=== PATIENT | female | born 1945 | race Caucasian/White ===

== ENCOUNTER → 2016-06-02 | Outpatient (CLI) | payer MEDICARE, OTHER ==
--- NOTE | 2016-06-03 07:37 | MM ---
Reason for exam: history of breast cancer, conservation therapy. Last mammogram was performed 1 year ago. History: Patient is postmenopausal, has history of breast cancer at age 43, and history of high-risk lesion on a previous biopsy. Family history of breast cancer in daughter at age 42, breast cancer in maternal aunt at age 60, breast cancer in maternal grandmother at age 60, and breast cancer in sister at age 64. Lumpectomy of the right breast, 1989. Radiation therapy of the right breast, 1989. Physical Findings: Nurse did not find any significant physical abnormalities on exam. MG 3D Diag Mammo W/Cad MALLORY Bilateral CC and MLO view(s) were taken. Prior study comparison: May 28, 2015, bilateral MG 3d diag mammo w/cad MALLORY. May 25, 2014, bilateral MG diagnostic mammo w CAD MALLORY. The breast tissue is extremely dense which could obscure a lesion on mammography. There is chronic nodularity in the left breast. These results were verbally communicated with the patient and result sheet given to the patient on 06/02/16. ASSESSMENT: Benign, BI-RAD 2 RECOMMENDATION: Routine screening mammogram of both breasts in 1 year.
== END | disposition home or self-care (01) ==
LOC: RADMAMWWP 15:27
PROVIDERS: ATTEND Family Medicine
DX: Z85.3 Personal history of malignant neoplasm of breast (principal); Z80.3 Family history of malignant neoplasm of breast
CPT/HCPCS: G0204; G0279

== ENCOUNTER 2016-06-03 14:35 | Emergency (ER) | payer MEDICARE, OTHER ==
--- NOTE | 2016-06-03 15:50 | XR ---
EXAMINATION TYPE: XR chest 2V DATE OF EXAM: 06/03/2016 3:41 PM COMPARISON: NONE HISTORY: Hemoptysis TECHNIQUE: Frontal and lateral views of the chest are obtained. FINDINGS: There is a spinal curvature. Prominent lung volumes are compatible with underlying COPD. N o pneumothorax or pleural effusion. There is a wedge-shaped area of increased attenuation present sup erimposing the heart and lateral exam possibly within the right middle lobe. Pulmonary vascularity an d stephen within normal limits. Heart size is not enlarged. IMPRESSION: There may be some underlying scarring or atelectasis, correlate to exclude pneumonia. Co nsider chest CT for better evaluation. COPD.
--- NOTE | 2016-06-03 15:51 | ED ---
General Adult HPI - General Chief complaint: Upper Respiratory Infection Stated complaint: coughing up blood Time Seen by Provider: 06/03/16 15:13 Source: patient, RN notes reviewed Mode of arrival: ambulatory Limitations: no limitations - History of Present Illness Initial comments: Patient 70-year-old female sick. Past medical history for asthma, who presents emergency room today with chief complaint of hemoptysis. She does admit that she had episode 2 days ago where she was coughing up blood at night for approximately an hour and half. Patient states it's a bright red color. States did not have any problems for the past 2 days. Today after lunch had another episode of coughing where she had bright red blood for approximately half hour. States her weight. She also had coughing episode where she continued to cough and again noticed blood in her sputum. States it was a bright red color. Patient states she does see a medical coding instructor . She states she called the office and was advised coming here to the emergency room. Patient denies any other complaints or symptoms at this time. Patient denies any recent fever, chills, shortness of breath, chest pain, back pain, abdominal pain, nausea or vomiting, numbness or tingling, dysuria or hematuria, constipation or diarrhea, headaches or visual changes, or any other complaints. - Related Data Home Medications Medication Instructions Recorded Confirmed Budesonide-Formot 160-4.5 Mcg 2 puff INHALATION BID 12/21/14 06/03/16 [Symbicort 160-4.5 Mcg Inhaler] [place] Cit/Mag/D3/Zn/Cash Management Coordinator/Timoteo/Bor 1 each PO DAILY 12/21/14 06/03/16 [Citracal-Vit D + Magnesium Tab] Cyanocobalamin (Vitamin B-12) 1 each NS DAILY 12/21/14 06/03/16 [Nascobal] Ketotifen 0.025% Ophth Soln 1 drop BOTH EYES BID 12/21/14 06/03/16 [Zaditor] Liothyronine Sodium [Cytomel] 5 mcg PO Q2D 12/21/14 06/03/16 Montelukast [Singulair] 10 mg PO HS 12/21/14 06/03/16 Multivit with Calcium,Iron,Min 1 each PO DAILY 12/21/14 06/03/16 [Women's Daily Multivitamin] Rizatriptan Benzoate [Maxalt] 10 mg PO DIRECTED PRN 12/21/14 06/03/16 Diclofenac Sodium Gel [Voltaren 2 - 4 gm TOPICAL QID PRN 06/03/16 06/03/16 Gel] Fluorometholone [Fml S.o.p] 1 applic BOTH EYES TID 06/03/16 06/03/16 Levothyroxine Sodium [Synthroid] 112 mcg PO DAILY 06/03/16 06/03/16 Topiramate [Topamax] 50 mg PO BID 06/03/16 06/03/16 tiZANidine [Zanaflex] 2 mg PO BID PRN 06/03/16 06/03/16 Previous Rx's Medication Instructions Recorded Levofloxacin [Levaquin] 500 mg PO DAILY 7 Days 06/03/16 predniSONE 20 mg PO DIRECTED #12 tab 06/03/16 Allergies Allergy/AdvReac Type Severity Reaction Status Date / Time codeine AdvReac Nausea & Verified 06/03/16 15:01 Vomiting antibiotics AdvReac severe Uncoded 06/03/16 15:01 diarrhea fragrances AdvReac triggers Uncoded 06/03/16 15:01 asthma Review of Systems ROS Statement: Those systems with pertinent positive or pertinent negative responses have been documented in the HPI. ROS Other: All systems not noted in ROS Statement are negative. Past Medical History Past Medical History: Asthma, Cancer, GERD/Reflux, Thyroid Disorder Additional Past Medical History / Comment(s): hx. migraines, hx. colon polyps, runs low BP, problems w/bowel leakage, & discomfort before & after BM, hx. 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 Eye: Pupils are equal, round and reactive to light, extra-ocular movements are intact. No nystagmus. There is normal conjunctiva bilaterally. No signs of icterus. Ears, nose, mouth and throat: There are moist mucous membranes and no oral lesions. Neck: The neck is supple, there is no tenderness or JVD. Cardiovascular: There is a regular rate and rhythm. No murmur, rub or gallop is appreciated. Respiratory: Mild expiratory wheeze. respirations are non-labored, breath sounds are equal. No stridor, rales, or rhonchi. Gastrointestinal: Soft, non-distended, non-tender abdomen without masses or organomegaly noted. There is no rebound or guarding present. No CVA tenderness. Bowel sounds are unremarkable. Musculoskeletal: Normal ROM, no tenderness. Strength 5/5. Sensation intact. Pulses equal bilaterally 2+. Neurological: A&O x 3. CN II-XII intact, There are no obvious motor or sensory deficits. Coordination appears grossly intact. Speech is normal. Skin: Skin is warm and dry and no rashes or lesions are noted. Psychiatric: Cooperative, appropriate mood & affect, normal judgment. Limitations: no limitations Course Vital Signs 06/03/16 14:57 Temperature 98.4 F Pulse Rate 97 Respiratory 20 Rate Blood Pressure 146/84 O2 Sat by Pulse 93 L Oximetry Medical Decision Making - Medical Decision Making Case discussed in detail with attending physician Dr. Alcala. Chest x-ray revealed and showed atelectasis with scarring with possible pneumonia on the right. Results were discussed with the patient. Case discussed with patient about options of admission versus being discharged. States she would feel more comfortable being discharged home. States she will follow-up with medical coding instructor. Patient will be started on Levaquin and steroids here in the emergency room. Advised follow-up medical coding instructor over the next 2 days. Advised return to emergency room if any symptoms increase or worsen or for any other concerns. Disposition Clinical Impression: Community acquired pneumonia Disposition: HOME SELF-CARE Condition: Good Instructions: Community Acquired Pneumonia (ED) Additional Instructions: Please use medication as discussed. Please follow-up with family doctor/ medical coding instructor in the next 2 days of symptoms have not improved. Please return to emergency room if the symptoms increase or worsen or for any other concerns. Prescriptions: Levofloxacin [Levaquin] 500 mg PO DAILY 7 Days predniSONE 20 mg PO DIRECTED #12 tab Referrals: Johanne Leger DO [Primary Care Provider] - 1-2 days Venu Chaparro DO [Doctor of Osteopathic Medicine] - 1-2 days Time of Disposition: 16:06
[2016-06-03 15:57] VITALS: BP 133/72; PULSE 74; RESP 16
[2016-06-03] MEDS ORDERED: LEVOFLOXACIN 500 MG TAB PO STA (16:08)
[2016-06-03] MEDS ORDERED: methylPREDNISolone SOD SUCCI 125 MG/2 ML VIAL IV STA (16:08)
[2016-06-03 16:23] VITALS: TEMP 97.8
== END 2016-06-03 16:23 | disposition home or self-care (01) ==
LOC: EC 14:35
DX: J18.9 Pneumonia, unspecified organism (principal); K21.9 Gastro-esophageal reflux disease without esophagitis; J45.909 Unspecified asthma, uncomplicated; E07.9 Disorder of thyroid, unspecified; Z85.3 Personal history of malignant neoplasm of breast; Z79.51 Long term (current) use of inhaled steroids; Z79.899 Other long term (current) drug therapy; Z88.5 Allergy status to narcotic agent; Z88.1 Allergy status to other antibiotic agents; Z91.09 Other allergy status, other than to drugs and biological substances
CPT/HCPCS: 71020; 99283; 96374; J2930

== ENCOUNTER 2016-08-21 10:33 | Day surgery (SDC) | payer MEDICARE, OTHER ==
[~2016-08-21 10:33] MED LIST: ALBUTEROL NEB (CONC) 2.5 MG/0.5 ML INHALATION ONE; ATROPINE SULFATE 0.4 MG/ML 1 ML VIAL IM ONE; LACTATED RINGERS 1,000 ML IV ONE; LIDOCAINE 2% (PF) 20 MG/ML 10ML INHALATION ONE
[2016-08-21 11:04] VITALS: TEMP 97
[2016-08-21] MEDS ORDERED: LIDOCAINE 1% 20 ML VIAL (10MG/ML) FOR IV START INTRADERMA ONE (11:13)
[2016-08-21] MEDS ORDERED: PROPOFOL 10 MG/ML 20 ML VIAL IV ONE (12:06)
[2016-08-21] MEDS ORDERED: LIDOCAINE 2% (PF) 20 MG/ML 10ML INHALATION ONE (12:22)
[2016-08-21 12:39] VITALS: BP 154/75; PULSE 98; RESP 18
[2016-08-21 22:06] LABS: RBC, Body Fluid 12800 /uL
--- NOTE | 2016-08-22 08:07 | PCN ---
DATE OF PROCEDURE: PROCEDURE: Bronchoscopy, airway examination, therapeutic lavage, BAL. PREOPERATIVE DIAGNOSIS: Hemoptysis. POSTOPERATIVE DIAGNOSIS: Hemoptysis. The patient's procedure was done in Room #2. There was informed consent. There was universal timeout. SCRUM PRODUCT OWNER provided IV conscious sedation. After the patient was adequately sedated and being fully monitored, his bronchoscope was inserted through the right nostril. It passed through the right nasopharynx into the oropharynx. The hypopharynx was identified and topicalized. The hypopharyngeal structures including anterior commissure, true cords, false cords, arytenoids, piriform sinuses, right and left and valleculae look normal. There was no blood in the hypopharynx. The hypopharyngeal structures were topicalized and bronchoscope was pushed through the glottic opening into the trachea. Trachea appeared normal. Tracheal heidy was sharp. There was no blood or any significant blood noted to be in the trachea. The right and left mainstem were topicalized. The right upper lobe and its 3 segments, the right middle lobe and its 2 segments, the right lower lobe and its 5 segments, the left upper lobe proper and its 2 segments, the lingula and its 2 segments, and left lower lobe and its 4 segments were all evaluated. The bleeding seemed to be occurring primarily in the right middle lobe. There was no mass or tumor. There was additional blood noted elsewhere, but it was probably primarily from the right middle lobe. There was purulence noted. It was noted throughout both lungs, but mostly on the right side. The bronchoscope was then ( ) into right middle lobe and the BAL took place. The patient tolerated the procedure well. She did cough a bit. After the BAL was obtained, the additional blood and secretions were suctioned and the bronchoscope was withdrawn. The patient will be recovered. There was no immediate complication. The fluid will be sent for analysis.
== END 2016-08-21 13:01 | disposition home or self-care (01) ==
LOC: ORWHC2ENDO 10:33
PROVIDERS: ATTEND Internal Medicine Critical Care Medicine
DX: R04.2 Hemoptysis (principal); J98.4 Other disorders of lung; E03.9 Hypothyroidism, unspecified; J45.909 Unspecified asthma, uncomplicated; G43.909 Migraine, unspecified, not intractable, without status migrainosus; Z79.899 Other long term (current) drug therapy; Z79.51 Long term (current) use of inhaled steroids; Z88.5 Allergy status to narcotic agent; Z88.0 Allergy status to penicillin
CPT/HCPCS: 94640; 87798 ×4; 87496; 87498; 87529 ×2; 88108; 88305; 89050; 87252; 87502 ×2; 87070; 87205; 87116; 87102; 87206; 31624; J0461; J2001; J2704

== ENCOUNTER → 2017-06-15 | Outpatient (CLI) | payer MEDICARE, OTHER ==
--- NOTE | 2017-06-15 16:52 | US ---
EXAMINATION TYPE: US venous doppler duplex LE LT DATE OF EXAM: 06/15/2017 4:30 PM COMPARISON: NONE CLINICAL HISTORY: M79.662 PAIN IN LT LOWER LIMB,R22.42 SWELLING OF LEFT LOWER. Patient complains if l eft anterior foot pain with swelling and redness x 2 days. SIDE PERFORMED: Left TECHNIQUE: The lower extremity deep venous system is examined utilizing real time linear array sonog saumya with graded compression, doppler sonography and color-flow sonography. VESSELS IMAGED: Common Femoral Vein Deep Femoral Vein Greater Saphenous Vein * Femoral Vein Popliteal Vein Small Saphenous Vein * Proximal Calf Veins (* superficial vessels) Left Leg: Negative for DVT. Tech findings called to ETHEL Robertson at Dr Gennaro Leger[facility] in [place] at e xa's end Grayscale, color doppler, spectral doppler imaging performed of the deep veins of the lower extremity . There is normal flow, compressibility, vascular waveforms. IMPRESSION: No sonographic evidence of deep venous thrombosis within the left lower extremity.
== END | disposition home or self-care (01) ==
LOC: RADUSWWP 15:51
PROVIDERS: ATTEND Family Medicine
DX: R22.42 Localized swelling, mass and lump, left lower limb (principal); M79.662 Pain in left lower leg

== ENCOUNTER → 2017-06-25 | Outpatient (CLI) | payer MEDICARE, OTHER ==
--- NOTE | 2017-06-25 14:42 | MM ---
Reason for exam: additional evaluation requested from prior study. Last mammogram was performed 1 year and 1 month ago. History: Patient is postmenopausal, has history of breast cancer at age 43, and history of high-risk lesion on a previous biopsy. Family history of breast cancer in daughter at age 42, breast cancer in maternal aunt at age 60, breast cancer in maternal grandmother at age 60, and breast cancer in sister at age 64. Lumpectomy of the right breast, 1989. Radiation therapy of the right breast, 1989. Physical Findings: Nurse did not find any significant physical abnormalities on exam. MG 3D Diag Mammo W/Cad MALLORY Bilateral CC and MLO view(s) were taken. LM and spot compression MLO view(s) were taken of the right breast. Prior study comparison: June 02, 2016, bilateral MG 3d diag mammo w/cad MALLORY. May 28, 2015, bilateral MG 3d diag mammo w/cad MALLORY. The breast tissue is heterogeneously dense. This may lower the sensitivity of mammography. Finding: There are typically benign round calcifications in the left breast. There is no discrete abnormality persists on additional views. These results were verbally communicated with the patient and result sheet given to the patient on 06/25/17. ASSESSMENT: Benign, BI-RAD 2 RECOMMENDATION: Follow-up diagnostic mammogram of both breasts in 1 year.
== END | disposition home or self-care (01) ==
LOC: RADMAMWWP 13:32
PROVIDERS: ATTEND Family Medicine
DX: Z08 Encounter for follow-up examination after completed treatment for malignant neoplasm (principal); Z85.3 Personal history of malignant neoplasm of breast
CPT/HCPCS: 77066; G0279

== ENCOUNTER → 2017-06-30 | Outpatient (CLI) | payer MEDICARE, OTHER | END | disposition home or self-care (01) | LOC: LABWHC1 14:49 | PROVIDERS: ATTEND Orthopaedic Surgery | DX: E55.9 Vitamin D deficiency, unspecified (principal) | CPT/HCPCS: 36415; 82306 ==

== ENCOUNTER → 2017-08-31 | Outpatient (CLI) | payer MEDICARE, OTHER ==
--- NOTE | 2017-09-01 09:03 | BD ---
EXAMINATION TYPE: Axial Bone Density DATE OF EXAM: 08/31/2017 COMPARISON: DEXA bone scan May 14, 2012 CLINICAL HISTORY: Postmenopausal Height: 161.6 Weight: 69 FRAX RISK QUESTIONS: Alcohol (3 or more units per day): no Family History (Parent hip fracture): no Glucocorticoids (More than 3mos): inhalers as needed (Ex: prednisone, prednisolone, methylprednisolone, dexamethasone, and hydrocortisone). History of Fracture in Adulthood: yes Secondary Osteoporosis: 1. Type 1 Diabetes: no 2. Hyperthyroidism: no 3. Menopause before 45: no 4. Malnutrition: no 5. Chronic liver disease: no Rheumatoid Arthritis: no Current Tobacco Use: no RISK FACTORS HISTORY OF: Family History of Osteoporosis: yes Active: yes Diet low in dairy products/other sources of calcium: no Postmenopausal woman: age 51 Lost more than 2 inches in height since high school: no Frequent falls: no MEDICATIONS: topiramate, montelukast, rizatriptan, Symbicort, Lovenox. lomotil, nascobil Thyroid Medications: thyroid How Lon years Additional History: pt has had breast cancer EXAM MEASUREMENTS: Bone mineral densitometry was performed using the [employer] System. Bone mineral density as measured about the Lumbar spine is: ----- L1-L4(G/cm2): 0.909 T Score Values are as follows: ----- L2: -2.2 ----- L3: -1.9 ----- L4: -2.3 ----- L1-L4: -2.3 Bone mineral density has: increased 6.6 % since study of: 05.14.2012 Bone mineral density about the R hip (g/cm2): 0.647 Bone mineral density about the L hip (g/cm2): 0.687 T Score values are as follows: -----R Neck: -2.8 -----L Neck: -2.5 -----R Total: -2.7 -----L Total: -2.4 Bone mineral density has: decreased -0.3 % since study of: 05.14.2012 IMPRESSION: Osteoporosis (T Score less than -2.5) remains present in the right hip. There remains increased fracture risk and therapy is usually indicated based on age. Re-Screen 1-2 years. NOTE: T-SCORE=SD OF THE YOUNG ADULT MEAN.
== END | disposition home or self-care (01) ==
LOC: RADBDWWP 14:54
PROVIDERS: ATTEND Family Medicine
DX: M81.0 Age-related osteoporosis without current pathological fracture (principal)
CPT/HCPCS: 77080

== ENCOUNTER → 2017-10-05 | Outpatient (CLI) | payer MEDICARE, OTHER | END | disposition home or self-care (01) | LOC: LABWHC1 14:39 | PROVIDERS: ATTEND Orthopaedic Surgery | DX: E55.9 Vitamin D deficiency, unspecified (principal) | CPT/HCPCS: 36415; 82306 ==

== ENCOUNTER → 2017-11-18 | Outpatient (CLI) | payer MEDICARE, OTHER ==
[~2017-11-18] MED LIST changes: -ALBUTEROL NEB (CONC) 2.5 MG/0.5 ML INHALATION ONE; -ATROPINE SULFATE 0.4 MG/ML 1 ML VIAL IM ONE; +DENOSUMAB 60 MG/ML 1 ML SYRINGE SQ ONE; -LACTATED RINGERS 1,000 ML IV ONE; -LIDOCAINE 2% (PF) 20 MG/ML 10ML INHALATION ONE
[2017-11-18 09:52] VITALS: BP 122/76; PULSE 62; RESP 16; TEMP 97.8
== END | disposition home or self-care (01) ==
LOC: PROCWHC3 09:34
PROVIDERS: ATTEND Physician Assistant
DX: M81.0 Age-related osteoporosis without current pathological fracture (principal)
CPT/HCPCS: 96372; J0897

== ENCOUNTER → 2018-07-12 | Outpatient (CLI) | payer MEDICARE ==
--- NOTE | 2018-07-13 07:43 | MM ---
Reason for exam: additional evaluation requested from prior study. Last mammogram was performed 1 year and 1 month ago. History: Patient is postmenopausal, has history of breast cancer at age 43, and history of high-risk lesion on a previous biopsy. Family history of breast cancer in daughter at age 42, breast cancer in maternal aunt at age 60, breast cancer in maternal grandmother at age 60, and breast cancer in sister at age 64. Lumpectomy of the right breast, 1989. Radiation therapy of the right breast, 1989. Physical Findings: Nurse did not find any significant physical abnormalities on exam. MG 3D Diag Mammo W/Cad MALLORY Bilateral CC and MLO view(s) were taken. Spot compression CC and spot compression MLO view(s) were taken of the left breast. Prior study comparison: June 25, 2017, bilateral MG 3d diag mammo w/cad MALLORY. June 02, 2016, bilateral MG 3d diag mammo w/cad MALLORY. The breast tissue is heterogeneously dense. This may lower the sensitivity of mammography. There is chronic nodularity in the left breast. Post surgical changes right breast. Stable superior asymmetric density. Asymmetric densities on the left disperse on spot 3D images. These results were verbally communicated with the patient and result sheet given to the patient on 07/12/18. ASSESSMENT: Benign, BI-RAD 2 RECOMMENDATION: Follow-up diagnostic mammogram of both breasts in 1 year.
== END | disposition home or self-care (01) ==
LOC: RADMAMWWP 15:21
PROVIDERS: ATTEND Family Medicine
DX: Z85.3 Personal history of malignant neoplasm of breast (principal)
CPT/HCPCS: 77066; G0279; 77062

== ENCOUNTER → 2018-08-02 | Outpatient (CLI) | payer MEDICARE ==
[2018-08-02 20:04] LABS: Codfish IgE <0.10 kU/L; Egg White IgE <0.10 kU/L
[2018-08-02 20:05] LABS: Peanut IgE <0.10 kU/L; Soybean IgE <0.10 kU/L
[2018-08-02 20:06] LABS: Clam IgE <0.10 kU/L; Scallop IgE <0.10 kU/L; Shrimp IgE <0.10 kU/L; Walnut IgE (Food) <0.10 kU/L
[2018-08-02 20:09] LABS: Cat Epith & Dander IgE <0.10 kU/L; Cockroach IgE <0.10 kU/L; Dermato. farinae IgE <0.10 kU/L; Dog Dander IgE <0.10 kU/L
[2018-08-02 20:11] LABS: Alternaria alternata IgE <0.10 kU/L; Birch IgE <0.10 kU/L; Elm IgE <0.10 kU/L; Maple (Box Elder) IgE <0.10 kU/L; Oak IgE <0.10 kU/L; Ragweed,Common IgE <0.10 kU/L
[2018-08-02 20:12] LABS: Red Top (Bentgrass) IgE <0.10 kU/L
[2018-08-02 21:25] LABS: Immunoglobulin E 2.18 IU/mL (0.00-114.00)
== END | disposition home or self-care (01) ==
LOC: LABWHC1 13:59
PROVIDERS: ATTEND Internal Medicine Critical Care Medicine
DX: H57.89 Other specified disorders of eye and adnexa (principal); R06.00 Dyspnea, unspecified; R09.82 Postnasal drip
CPT/HCPCS: 36415; 82785; 86003

== ENCOUNTER → 2019-02-01 | Outpatient (CLI) | payer MEDICARE ==
[~2019-02-01] MED LIST changes: -DENOSUMAB 60 MG/ML 1 ML SYRINGE SQ ONE; +SODIUM CHLORIDE 0.9% 500 ML 500 ML in EMPTY BAG 1 BAG IV PRN; +ZOLEDRONIC ACID 5 MG in SODIUM CHLORIDE 0.9% 100 ML IV NR
[2019-02-01 09:01] VITALS: BP 113/73; PULSE 61; RESP 16; TEMP 97.7
== END | disposition home or self-care (01) ==
LOC: PROCWHC3 08:29
PROVIDERS: ATTEND Internal Medicine
DX: M81.0 Age-related osteoporosis without current pathological fracture (principal)
CPT/HCPCS: 96365; J3489